=== PATIENT | female | born 1955 | race Two or more races ===

== ENCOUNTER 2024-09-19 06:13 | Day surgery (SDC) | payer OTHER ==
[2024-09-19] MEDS ORDERED: fentaNYL CITRATE 50 MCG/ML AMPUL IV PUSH ONE (13:30)
[2024-09-19] MEDS ORDERED: MIDAZOLAM HCL 2 MG/2 ML VIAL IV ONE (13:30)
[2024-09-19] MEDS ORDERED: DIPHENHYDRAMINE HCL 50 MG/ML VIAL 1ML IV ONE (13:30)
== END 2024-09-19 10:50 | disposition home or self-care (01) ==
LOC: AMB-ENDOS 06:13
PROVIDERS: ATTEND Surgery
DX: K63.5 Polyp of colon (principal); K58.9 Irritable bowel syndrome, unspecified

== ENCOUNTER 2024-11-24 10:00 | Inpatient (IN) | payer OTHER ==
[~2024-11-24] VITALS: Wt 56.7 kg
[2024-11-25 13:26] VITALS: BP 155/78
[2024-12-09] MEDS ORDERED: CEFTRIAXONE SODIUM 2,000 MG VIAL ONE (13:34)
[2024-12-09] MEDS ORDERED: METRONIDAZOLE/SODIUM CHLORIDE 500 MG/100 ML PIGGYBACK IV ONE (13:34)
[2024-12-09] MEDS ORDERED: ACETAMINOPHEN 500 MG GEL..CAP PO SCH (14:00)
[2024-12-09] MEDS ORDERED: ONDANSETRON HCL 2 MG/ML VIAL IV PRN (14:00)
[2024-12-09] MEDS ORDERED: MORPHINE SULFATE 4 MG/ML CARTRIDGE IV PRN (14:00)
[2024-12-09] MEDS ORDERED: DEXTROSE 50 % IN WATER 0.5 G/ML DISP.SYRIN IV PRN (14:00)
[2024-12-09] MEDS ORDERED: RINGERS SOLUTION,LACTATED 1,000 ML IV SCH (14:00)
[2024-12-09] MEDS ORDERED: LIDOCAINE HCL 1%/EPINEPHRINE 20ML VIAL IJ ONE (14:09)
[2024-12-09] MEDS ORDERED: BUPIVACAINE HCL/MPF 0.5% 30ML VIAL ONE (14:09)
[2024-12-09] MEDS ORDERED: MORPHINE SULFATE 4 MG/ML VIAL IV ONE (16:15)
[2024-12-09] MEDS ORDERED: HYOSCYAMINE SULFATE 0.125 MG TAB.SUBL SL SCH (17:00)
[2024-12-09] MEDS ORDERED: POLYETHYLENE GLYCOL 3350 17 GM BLIST.PACK PO SCH (17:00)
[2024-12-09] MEDS ORDERED: GABAPENTIN 300 MG CAPSULE PO SCH (17:00)
[2024-12-09 17:46] LABS: HEMATOCRIT 41.4 % (36.0-45.00); HEMOGLOBIN 14.3 g/dL (12.0-15.00); MEAN CORPUSCULAR HGB CONC 34.5 g/dl (32.0-36.0); PLATELET COUNT 138 K/uL (150-450); RED BLOOD COUNT 4.75 M/uL (4.00-6.00); RED CELL DISTRIBUTION WIDTH 13.5 % (11.5-14.5)
[2024-12-09 18:13] LABS: ALBUMIN 3.8 gm/dL (3.4-5.0); CREATININE SERUM 0.66 mg/dL (0.55-1.02); GFR 88.28; MAGNESIUM 1.8 mg/dL (1.8-2.4); PHOSPHOROUS 3.6 mg/dL (2.5-4.9); POTASSIUM 4.4 mEq/L (3.5-5.1)
[2024-12-09] MEDS ORDERED: FAMOTIDINE/PF 20 MG/2 ML VIAL IV PUSH SCH (21:00)
[2024-12-10 00:30] VITALS: BP 127/61; O2SAT 97
[2024-12-10 06:29] LABS: HEMATOCRIT 35.1 % (36.0-45.00); HEMOGLOBIN 12.2 g/dL (12.0-15.00); MEAN CELL VOLUME 86.7 fL (80.00-100.00); MEAN CORPUSCULAR HEMOGLOBIN 30.2 pg (27.00-32.0); MEAN CORPUSCULAR HGB CONC 34.8 g/dl (32.0-36.0); RED BLOOD COUNT 4.05 M/uL (4.00-6.00); RED CELL DISTRIBUTION WIDTH 13.1 % (11.5-14.5)
[2024-12-10 06:35] LABS: PLATELET COUNT 128 K/uL (150-450)
[2024-12-10 07:29] LABS: CALCIUM 8.3 mg/dL (8.5-10.1); CREATININE SERUM 0.67 mg/dL (0.55-1.02); GFR 86.76; MAGNESIUM 1.5 mg/dL (1.8-2.4); PHOSPHOROUS 3.4 mg/dL (2.5-4.9); POTASSIUM 4.21 mEq/L (3.5-5.1)
[2024-12-10 08:17] VITALS: BP 106/53; O2SAT 96
[2024-12-10] MEDS ORDERED: AMLODIPINE BESYLATE 5 MG TABLET PO SCH (09:00)
[2024-12-10] MEDS ORDERED: CANDESARTAN CILEXETIL 8 MG TAB PO SCH (09:00)
[2024-12-10] MEDS ORDERED: MAGNESIUM SULFATE IN WATER 4 GM/100 ML PIGGYBACK IV NR (13:00)
[2024-12-10 16:00] VITALS: BP 137/60; O2SAT 99
[2024-12-10] MEDS ORDERED: TAMSULOSIN HCL 0.4 MG CAP PO STA (16:31)
[2024-12-10] MEDS ORDERED: ENOXAPARIN SODIUM 40 MG/0.4 ML SYRINGE SUBCUTANEO SCH (17:00)
[2024-12-10] MEDS ORDERED: POTASSIUM PHOS,M-BASIC-D-BASIC 15 MM in 0.9 % SODIUM CHLORIDE 250 ML IV NR (18:15)
[2024-12-11 01:17] VITALS: BP 133/60; O2SAT 99
[2024-12-11 08:00] VITALS: BP 146/68; O2SAT 98
[2024-12-11] MEDS ORDERED: ENOXAPARIN SODIUM 40 MG/0.4 ML SYRINGE SUBCUTANEO SCH (09:00)
[2024-12-11 16:00] VITALS: BP 134/60; O2SAT 100
[2024-12-12] VITALS: BP 103/50; O2SAT 98
[2024-12-12 08:00] VITALS: BP 130/58; O2SAT 96
[2024-12-12] MEDS ORDERED: TYLENOL ARTHRI650 MG PO (11:56)
[2024-12-12] MEDS ORDERED: NEURONTIN300 MG PO (11:56)
[2024-12-12] MEDS ORDERED: INTESTINEX680 M1 PO (11:56)
== END 2024-12-12 14:29 | disposition home or self-care (01) | DRG 331 ==
LOC: SURH 12-09 07:00 → O/R 12-09 07:23 → SURH 12-09 10:00
PROVIDERS: ADMIT Surgery; ATTEND Surgery
PROC: 07BC4ZX Excision of Pelvis Lymphatic, Percutaneous Endoscopic Approach, Diagnostic (ICD-10-PCS; 2024-12-09)
PROC: 0DBU4ZZ Excision of Omentum, Percutaneous Endoscopic Approach (ICD-10-PCS; 2024-12-09)
PROC: 0DTF4ZZ Resection of Right Large Intestine, Percutaneous Endoscopic Approach (ICD-10-PCS; principal; 2024-12-09 07:00)
DX: D12.4 Benign neoplasm of descending colon (principal); D12.0 Benign neoplasm of cecum